=== PATIENT | male | born 1985 | race African-American/Black ===

== ENCOUNTER 2019-10-21 22:35 | Emergency (ER) | payer OTHER ==
[2019-10-21 22:39] VITALS: BP 160/93; PULSE 68; TEMP 98; BMI 29.2
[2019-10-21] MEDS ORDERED: ONDANSETRON 4 MG/2 ML VIAL IVPB ONE (23:43)
[2019-10-21] MEDS ORDERED: SODIUM CHLORIDE 1,000 ML IV STA (23:43)
[2019-10-21] MEDS ORDERED: FAMOTIDINE 20 MG/50 ML IVPB 20 MG/50 ML MG IVPB ONE ×2 (23:43→23:59)
--- NOTE | 2019-10-21 23:45 | PDOC ---
History of Present Illness - General Chief Complaint: Pain Stated Complaint: ABD PAIN Time Seen by Provider: 10/21/19 23:08 History Source: Patient - History of Present Illness Initial Comments: 10/21/19 23:45 34-year-old male complaining of epigastric pain and bloating with diarrhea for the last 2 days. Patient took Imodium with no significant pain relief. Reports multiple episodes of diarrhea today. Denies fever/chills, lower abdominal pain, chest pain. Past History - Medical History Allergies/Adverse Reactions: Allergies Allergy/AdvReac Type Severity Reaction Status Date / Time shellfish derived Allergy Verified 10/21/19 22:39 Home Medications: Ambulatory Orders Mag Hydrox/Al Hydrox/Simeth [Mylanta Suspension -] 30 ml PO Q6H PRN #1 bottle 10/22/19 Asthma: Yes COPD: No - Psycho-Social/Smoking History Smoking History: Never smoked - Substance Abuse Hx (Audit-C & DAST Scrn) How often the patient has a drink containing alcohol: Monthly or less Score: In Men: 4 or > Positive; In Women: 3 or > Positive: 1 Screen Result (Pos requires Nsg. Audit-10AR): Negative Review of Systems - Review of Systems Able to Perform ROS?: Yes Is the patient limited [place] proficient: No ABD/GI: Yes: Diarrhea, Nausea, Abdominal cramping : No: Symptoms Reported, See HPI, Burning, Dysuria, Discharge, Frequency, Flank Pain, Hematuria, Incontinence, Pain, Urgency, Testicular Mass, Testicular Swelling, Lesions, Testicular Pain, Other *Physical Exam - Vital Signs Last Vital Signs Temp Pulse Resp BP Pulse Ox 98 F 68 18 160/93 99 10/21/19 22:36 10/21/19 22:36 10/21/19 22:36 10/21/19 22:36 10/21/19 22:36 - Physical Exam General Appearance: Yes: Appropriately Dressed Respiratory/Chest: positive: Lungs Clear, Normal Breath Sounds Gastrointestinal/Abdominal: positive: Normal Bowel Sounds, Tender (epigastric area), Soft Musculoskeletal: positive: Normal Inspection Extremity: positive: Normal Capillary Refill, Normal Inspection, Normal Range of Motion Integumentary: positive: Normal Color, Dry, Warm Neurologic: positive: Fully Oriented, Alert, Normal Mood/Affect ED Treatment Course - LABORATORY CBC & Chemistry Diagram: 10/22/19 00:10 10/22/19 00:10 ED Progress Note - Progress Note Progress Note: 10/22/19 02:37 A: epigastric abdominal pain likely gastroenteritis P: labs IVF zofran pepcid maalox patient felt better. no abdominal pain., BRAT diet and strict return precautions reviewed with patient. patient verbalized understanding Discharge - Discharge Information Problems reviewed: Yes Clinical Impression/Diagnosis: Epigastric abdominal pain, Gastroenteritis Disposition: HOME - Additional Discharge Information Prescriptions: Mag Hydrox/Al Hydrox/Simeth [Mylanta Suspension -] 30 ml PO Q6H PRN #1 bottle PRN Reason: Gas - Follow up/Referral - Patient Discharge Instructions Patient Printed Discharge Instructions: Gastroenteritis Diet Additional Instructions: Drink plenty of fluids start a BRAT ( bananas, rice apples toast) follow up with your doctor return to the ER if symptoms worsen - Post Discharge Activity Work/Back to School Note: Back to Work
[2019-10-22 00:30] LABS: BASO % 0.8 % (0-2.0); EOS % 4.5 % (0-4.5); HEMATOCRIT 39.4 % (35.4-49); HEMOGLOBIN 12.6 GM/dL (11.7-16.9); LYMPH % 13.4 % (8-40); MCH 22.6 pg (25.7-33.7); MCHC 31.9 g/dl (32.0-35.9); MEAN CELL VOLUME 70.9 fl (80-96); MEAN PLT VOLUME 7.6 fl (7.5-11.1); MONO % 7.6 % (3.8-10.2); NEUT % 73.7 % (42.8-82.8); PLATELET COUNT 302 K/MM3 (134-434); RBC 5.56 M/mm3 (4.00-5.60); RDW 14.9 % (11.9-15.9); WHITE BLOOD COUNT 9.1 K/mm3 (4.0-10.0)
[2019-10-22 00:53] LABS: ALBUMIN 4.3 g/dl (3.4-5.0); BILIRUBIN,TOTAL 0.2 mg/dL (0.2-1); BLOOD UREA NITROGEN 12.2 mg/dL (7-18); CALCIUM 9.1 mg/dL (8.5-10.1); POTASSIUM 3.9 mmol/L (3.5-5.1); TOT PROT 8.1 g/dl (6.4-8.2)
[2019-10-22] MEDS ORDERED: MAG HYDROX/AL HYDROX/SIMETH 30 ML UNIT-DOSE CUP ONE (01:25)
[2019-10-22] MEDS ORDERED: ACETAMINOPHEN 325 MG TABLET (FP) ONE (01:25)
[2019-10-22] MEDS ORDERED: MAG HYDROX/AL HYDROX/SIMETH 30 ML UNIT-DOSE CUP PO ONE (01:26)
[2019-10-22] MEDS ORDERED: ACETAMINOPHEN 500 MG TABLET (FP) PO ONE (01:26)
[2019-10-22 01:52] LABS: PH,URINE 5.5 (5.0-8.0); URINE APPEARANCE CLEAR; URINE BILIRUBIN NEGATIVE (NEGATIVE); URINE COLOR YELLOW; URINE GLUCOSE (UA) NEGATIVE (NEGATIVE); URINE KETONE NEGATIVE (NEGATIVE); URINE LEUK ESTERASE NEGATIVE (NEGATIVE); URINE NITRITE NEGATIVE (NEGATIVE); URINE PROTEIN NEGATIVE (NEGATIVE); URINE UROBILINOGEN 0.2 mg/dL (0.2-1.0)
--- NOTE | 2019-10-22 10:37 | EKG ---
Test Reason : Blood Pressure : / mmHG Vent. Rate : 062 BPM Atrial Rate : 062 BPM P-R Int : 124 ms QRS Dur : 084 ms QT Int : 398 ms P-R-T Axes : 058 066 014 degrees QTc Int : 403 ms NORMAL SINUS RHYTHM NONSPECIFIC ST AND T WAVE ABNORMALITY ABNORMAL ECG NO PREVIOUS ECGS AVAILABLE Confirmed by Eldon Schrader MD ([id number]) on 10/22/2019 10:36:34 AM Referred By: Confirmed By:Eldon Schrader MD
== END 2019-10-22 02:31 | disposition home or self-care (01) ==
LOC: JER 22:35
PROC: 3E033GC Introduction of Other Therapeutic Substance into Peripheral Vein, Percutaneous Approach (ICD-10-PCS; principal; 2019-10-21)
PROC: 3E0337Z Introduction of Electrolytic and Water Balance Substance into Peripheral Vein, Percutaneous Approach (ICD-10-PCS; 2019-10-21)
DX: R10.13 Epigastric pain (principal)
CPT/HCPCS: 36415; 80053; 81003; 83690; 85025; 93005; 93010; 99284-25

== ENCOUNTER 2021-01-24 01:51 | Emergency (ER) | payer OTHER ==
[2021-01-24 02:10] VITALS: BP 132/78; PULSE 101; TEMP 102.3; BMI 29.2
[2021-01-24] MEDS ORDERED: ACETAMINOPHEN 500 MG TABLET (FP) PO ONE (03:27)
[2021-01-24] MEDS ORDERED: IBUPROFEN 600 MG TABLET (FP) PO ONE ×2 (03:50→03:53)
[2021-01-24] MEDS ORDERED: ACETAMINOPHEN 325 MG TABLET (FP) ONE (03:53)
== END 2021-01-24 04:34 | disposition home or self-care (01) ==
LOC: JER 01:51
DX: M79.10 Myalgia, unspecified site (principal)
CPT/HCPCS: 87804; 99283-25; C9803; U0003; U0005

== ENCOUNTER 2023-04-25 18:54 | Emergency (ER) | payer BC, OTHER ==
[2023-04-25 19:11] VITALS: RESP 18; BMI 28.3
[2023-04-25] MEDS ORDERED: IBUPROFEN 400 MG TABLET (FP) PO ONE (19:33)
[2023-04-25] MEDS ORDERED: ACETAMINOPHEN 500 MG TABLET (FP) ONE (19:33)
[2023-04-25] MEDS: ACETAMINOPHEN 500 MG TABLET (FP) PO ONE (19:50)
[2023-04-25] MEDS: IBUPROFEN 400 MG TABLET (FP) PO ONE (19:50)
[2023-04-25] MEDS: PENICILLIN G BENZATHINE 1,200,000 UNIT/2 ML PFS IM ONE (21:34)
[2023-04-25 21:35] VITALS: BP 144/91; PULSE 96; TEMP 99
== END 2023-04-25 21:52 | disposition home or self-care (01) ==
LOC: JERFT 18:54
DX: R09.81 Nasal congestion (principal); M79.10 Myalgia, unspecified site; R05.9 Cough, unspecified; R50.9 Fever, unspecified; R00.0 Tachycardia, unspecified; J02.0 Streptococcal pharyngitis; Z20.822 Contact with and (suspected) exposure to COVID-19
CPT/HCPCS: 0241U-QW; 87651; 99284-25